=== PATIENT | female | born 1965 | race Hispanic/Latino ===

== ENCOUNTER 2020-01-24 09:32 | Emergency (ER) | payer BC ==
[~2020-01-24] VITALS: Ht 152.4 cm; Wt 72.6 kg
--- NOTE | 2020-01-24 09:39 | Emergency Department Note ---
History of Present Illnes History of Present Illness History of Present Illness This is a 54 year old female presents to the ED for 2 day h/o of weakness and myalgias . Recently started on Gabapentin by PCP. Historian: Patient, Family Member Arrival Mode: Car History limited by: language barrier Scale Operator Required: Yes Onset (how long ago): day(s) (2) Severity: mild Onset quality: gradual Duration (how long): day(s) (2) Context: Denies recent illness, Denies recent surgery, Denies recent immobilization, Denies recent travel, Denies trauma/injury, Denies new medications, Denies hx of DVT/PE, Denies non-compliance w/ medications, Denies other Exacerbating factors: none Associated symptoms: Reports weakness; Denies chest pain Past Medical/Family History Physician Review I have reviewed the patient's past medical and family history. Any updates have been documented here. Past Medical History Recent Fever: No Clinical Suspicion of Infectio: No New/Unexplained Change in Ment: No Past Medical History: Diabetes Other Medical History: Neuroapthy Social History Smoking Cessation: Never Smoker Alcohol Use: None Any Illegal Drug Use: No Review of Systems Review of Systems Constitutional: Reports chills, Reports weakness, Reports other (body aches); Denies fever EENTM: Reports no symptoms Cardiovascular: Reports no symptoms Respiratory: Reports no symptoms Gastrointestinal: Reports nausea Genitourinary: Reports no symptoms Musculoskeletal: Reports no symptoms Integumentary: Reports no symptoms Neurological: Reports no symptoms Psychological: Reports no symptoms Endocrine: Reports no symptoms Hematological/Lymphatic: Reports no symptoms Physical Exam Related Data Allergies: Coded Allergies: No Known Allergies (Unverified , 01/24/20) Vital signs reviewed: Yes Physical Exam CONSTITUTIONAL Constitutional: Present morbidly obese HENT HENT: Present normocephalic, Present atraumatic, Present oropharynx clear/moist, Present nose normal HENT L/R: Present left ext ear normal, Present right ext ear normal EYES Eyes: Reports PERRL, Reports conjunctivae normal NECK Neck: Present ROM normal PULMONARY Pulmonary: Present effort normal, Present breath sounds normal CARDIOVASCULAR Cardiovascular: Present regular rhythm, Present heart sounds normal, Present capillary refill normal, Present normal rate GASTROINTESTINAL Abdominal: Present soft, Present nontender, Present bowel sounds normal GENITOURINARY Genitourinary: Present exam deferred SKIN Skin: Present warm, Present dry MUSCULOSKELETAL Musculoskeletal: Present ROM normal NEUROLOGICAL Neurological: Present alert, Present oriented x 3, Present no gross motor or sensory deficits PSYCHOLOGICAL Psychological: Present mood/affect normal, Present judgement normal Results Laboratory Lab results reviewed: Yes Laboratory comments Laboratory Tests Test 01/24/20 10:04 01/24/20 09:47 Urine Color Yellow (YELLOW) Urine Clarity Clear (CLEAR) Urine pH 7 (5 - 7) Urine Specific [place] 1.015 (1.010-1.025) Urine Protein Negative (NEGATIVE) Urine Glucose (UA) Negative (NEGATIVE) Urine Ketones Negative (NEGATIVE) Urine Blood Small (NEGATIVE) Urine Nitrite Negative (NEGATIVE) Urine Bilirubin Negative (NEGATIVE) Urine Urobilinogen 0.2 mg/dL (0.2 - 1) Urine Leukocyte Esterase Negative (NEGATIVE) Urine RBC 6-10 /HPF (0-5) Urine WBC 0-5 /HPF (0-5) Urine Epithelial Cells Few /LPF (NONE) Urine Bacteria Rare /HPF (NONE) White Blood Count 16.62 x10e3/uL (4.8-10.8) Red Blood Count 4.93 x10e6/uL (3.6-5.1) Hemoglobin 14.7 g/dL (12.0-16.0) Hematocrit 44.0 % (34.2-44.1) Mean Corpuscular Volume 89.2 fL (81-99) Mean Corpuscular Hemoglobin 29.8 pg (28-32) Mean Corpuscular Hemoglobin Concent 33.4 g/dL (31-35) Red Cell Distribution Width 12.9 % (11.7-14.4) Platelet Count 393 x10e3/uL (140-360) Neutrophils (%) (Auto) 44.5 % (38.7-80.0) Lymphocytes (%) (Auto) 49.3 % (18.0-39.1) Monocytes (%) (Auto) 4.5 % (4.4-11.3) Eosinophils (%) (Auto) 1.1 % (0.0-6.0) Basophils (%) (Auto) 0.2 % (0.0-1.0) Neutrophils # (Auto) 7.4 (2.1-6.9) Lymphocytes # (Auto) 8.2 (1.0-3.2) Monocytes # (Auto) 0.8 (0.2-0.8) Eosinophils # (Auto) 0.2 (0.0-0.4) Basophils # (Auto) 0.0 (0.0-0.1) Absolute Immature Granulocyte (auto 0.07 x10e3/uL (0-0.1) Differential Total Cells Counted 100 Neutrophils % (Manual) 43 % (40-74) Band Neutrophils % 1 % Lymphocytes % (Manual) 46 % (19-48) Monocytes % (Manual) 4 % (3.4-9.0) Eosinophils % (Manual) 1 % (0-7) Reactive Lymphocytes 5 Platelet Estimate Adequate Platelet Morphology Comment Few large Red Cell Morphology Comment Normal Sodium Level 141 mmol/L (136-145) Potassium Level 3.5 mmol/L (3.5-5.1) Chloride Level 103 mmol/L (98-107) Carbon Dioxide Level 27 mmol/L (22-29) Anion Gap 14.5 mmol/L (8-16) Blood Urea Nitrogen 8 mg/dL (7-26) Creatinine 0.74 mg/dL (0.57-1.11) Estimat Glomerular Filtration Rate > 60 ML/MIN (60-) BUN/Creatinine Ratio 11 (6-25) Glucose Level 137 mg/dL (74-118) Calcium Level 9.7 mg/dL (8.4-10.2) Total Bilirubin 0.6 mg/dL (0.2-1.2) Aspartate Amino Transf (AST/SGOT) 16 IU/L (5-34) Alanine Aminotransferase (ALT/SGPT) 31 IU/L (0-55) Alkaline Phosphatase 84 IU/L (40-150) Creatine Kinase 47 IU/L (29-168) Creatine Kinase MB 0.90 ng/mL (0-5.0) Troponin I 0.026 ng/mL (0-0.300) B-Type Natriuretic Peptide 16.7 pg/mL (0-100) Total Protein 8.6 g/dL (6.5-8.1) Albumin 5.2 g/dL (3.5-5.0) Globulin 3.4 g/dL (2.3-3.5) Albumin/Globulin Ratio 1.5 (0.8-2.0) Imaging Imaging results reviewed: Yes Impressions [facility] [address], [place] [address] Patient Name: PREM MARROQUIN MR #: [id number] : 1965 Age/Sex: 54/F Req #: [id number] Adm Physician: Ordered by: YUNIEL CRANDALL DO Report #: [id number] Location: ER Room/Bed: Procedure: [id number] DX/CHEST SINGLE (PORTABLE) Exam Date: 01/24/20 Exam Time: 1015 REPORT STATUS: Signed TECHNIQUE: Frontal view of the chest. INDICATION: ^Y ^ERMD ORDER ^[id number] ^1015 ^Y COMPARISON: None DISCUSSION: Limited evaluation due to portable technique. Lines and hardware: Overlying EKG leads are noted. Heart and mediastinum: Cardiomediastinal silhouette and pulmonary vascularity are within normal limits. Trachea projects midline. Lungs and pleura: No focal airspace consolidation. No pleural effusion. No pneumothorax. Soft tissues and bones: No acute abnormality. IMPRESSION: Negative for acute intrathoracic process. Signed by: Rogerio An MD on 01/24/2020 10:32 AM Dictated By: ROGERIO AN MD 1032 Transcribed By: WIN on 01/24/20 1032 COPY TO: YUNIEL CRANDALL DO~ [place] [address] Patient Name: PREM MARROQUIN MR #: [id number] : 1965 Age/Sex: 54/F Req #: [id number] Adm Physician: Ordered by: YUNIEL CRANDALL DO Report #: [id number] Location: ER Room/Bed: Procedure: [id number] CT/CT BRAIN WO Exam Date: 01/24/20 Exam Time: 1000 REPORT STATUS: Signed Exam: Head CT without contrast History: Weakness Comparison studies: None Technique: Axial images were obtained from the skull base to the vertex. Coronal and sagittal images reconstructed from the axial data. Dose modulation, iterative reconstruction, and/or weight based adjustment of the mA/kV was utilized to reduce the radiation dose to as low as reasonably achievable. Radiation dose: Total DLP: 832.18 mGy*cm. Estimated effective dose: DLP x 0.015 Intravenous contrast: None I was made aware of this exam for dictation at 12:50 PM on 01/24/2020. Findings: Scalp: Incidental linear scarring present in the left frontal scalp. Bones: No fractures, blastic or lytic lesions. Brain sulci: Appropriate for age. Ventricles: Normal in size and configuration. No hydrocephalus. Extra-axial spaces: No masses, no fluid collection. Parenchyma: No abnormal densities. No masses, acute hemorrhage, acute or chronic vascular insults. Sellar/suprasellar region: No abnormalities. Craniocervical junction: Patent foramen magnum. No Chiari one malformation. IMPRESSION: No acute intracranial abnormalities. Signed by: Dr. Hector Carbone M.D. on 01/24/2020 12:54 PM Dictated By: HECTOR CARBONE MD 1252 Transcribed By: WIN on 01/24/20 1254 COPY TO: YUNIEL CRANDALL DO~ Procedures 12 Lead ECG Interpretation ECG Interpretation : ECG: ECG 1 Scale Operator: Interpreted by ED physician Date: Jan 24, 2020 Time: 09:53 Prior ECG tracings: reviewed Rhythm: sinus rhythm Rate: normal BPM: 82 QRS axis: normal ST segments normal: Yes T waves flattening: I, II, V1-V6 Clinical Impression: non-specific ECG Assessment & Plan Medical Decision Making MDM Diff Dx : COVID-19 infection, CVA, ACS , sepsis, pneumonia Assessment & Plan Final Impression: (1) URI (upper respiratory infection) Depart Disposition: HOME, SELF-CARE YUNIEL CRANDALL DO Jan 24, 2020 09:39
[2020-01-24] MEDS ORDERED: ASPIRIN 81 MG CHEW TAB PO ONE (09:45)
[2020-01-24 10:00] LABS: BASOPHILS % 0.2 % (0.0-1.0); EOSINOPHILS # (AUTO) 0.2 (0.0-0.4); EOSINOPHILS % 1.1 % (0.0-6.0); HEMOGLOBIN 14.7 g/dL (12.0-16.0); LYMPHOCYTES # (AUTO) 8.2 (1.0-3.2); LYMPHOCYTES % 49.3 % (18.0-39.1); MEAN CORPUSCULAR HEMOGLOBIN 29.8 pg (28-32); MEAN CORPUSCULAR HGB CONC 33.4 g/dL (31-35); MEAN CORPUSCULAR VOLUME 89.2 fL (81-99); MONOCYTES # (AUTO) 0.8 (0.2-0.8); MONOCYTES % 4.5 % (4.4-11.3); NEUTROPHILS # (AUTO) 7.4 (2.1-6.9); NEUTROPHILS % 44.5 % (38.7-80.0); PLATELET COUNT 393 x10e3/uL (140-360); RED BLOOD COUNT 4.93 x10e6/uL (3.6-5.1); RED CELL DISTRIBUTION WIDTH 12.9 % (11.7-14.4)
[2020-01-24 10:30] LABS: ALANINE AMINOTRANSFERASE 31 IU/L (0-55); ALBUMIN 5.2 g/dL (3.5-5.0); ALBUMIN/GLOBULIN RATIO 1.5 (0.8-2.0); ALKALINE PHOSPHATASE 84 IU/L (40-150); ANION GAP 14.5 mmol/L (8-16); BLOOD UREA NITROGEN 8 mg/dL (7-26); BUN/CREATININE RATIO 11 (6-25); CALCIUM 9.7 mg/dL (8.4-10.2); CARBON DIOXIDE 27 mmol/L (22-29); CHLORIDE 103 mmol/L (98-107); CREATINE KINASE 47 IU/L (29-168); CREATININE, SERUM 0.74 mg/dL (0.57-1.11); EST GLOMERULAR FILTRATION RATE > 60 ML/MIN (60-); GLUCOSE 137 mg/dL (74-118); POTASSIUM 3.5 mmol/L (3.5-5.1); SODIUM 141 mmol/L (136-145)
--- NOTE | 2020-01-24 10:35 | Diagnostic Imaging Report ---
TECHNIQUE: Frontal view of the chest. INDICATION: ^Y ^ERMD ORDER ^[id number] ^1015 ^Y COMPARISON: None DISCUSSION: Limited evaluation due to portable technique. Lines and hardware: Overlying EKG leads are noted. Heart and mediastinum: Cardiomediastinal silhouette and pulmonary vascularity are within normal limits. Trachea projects midline. Lungs and pleura: No focal airspace consolidation. No pleural effusion. No pneumothorax. Soft tissues and bones: No acute abnormality. IMPRESSION: Negative for acute intrathoracic process. Signed by: Leonard An MD on 01/24/2020 10:32 AM
[2020-01-24 11:11] LABS: CLARITY,URINE CLEAR (CLEAR); COLOR,URINE YELLOW (YELLOW); LEUKOCYTE ESTERASE ,URINE NEGATIVE (NEGATIVE); NITRITE,URINE NEGATIVE (NEGATIVE)
[2020-01-24 11:12] LABS: BILIRUBIN,URINE NEGATIVE (NEGATIVE); KETONES,URINE NEGATIVE (NEGATIVE); PROTEIN,URINE DIPSTICK NEGATIVE (NEGATIVE); URINE UROBILINOGEN 0.2 mg/dL (0.2 - 1)
[2020-01-24 11:33] LABS: WBC,URINE (MAN) 0-5 /HPF (0-5)
[2020-01-24 11:34] LABS: BACTERIA,URINE RARE /HPF; EPITHELIAL CELLS,URINE FEW /LPF
[2020-01-24 11:43] LABS: BAND NEUTROPHILS % (MANUAL) 1 %; EOSINOPHILS % (MANUAL) 1 % (0-7); LYMPHOCYTES % (MANUAL) 46 % (19-48); MONOCYTES % (MANUAL) 4 % (3.4-9.0); NEUTROPHILS % (MANUAL) 43 % (40-74); PLATELET ESTIMATE ADEQUATE; PLATELET MORPHOLOGY COMMENT FEW LARGE; RBC MORPHOLOGY COMMENT NORMAL
--- NOTE | 2020-01-24 12:57 | Diagnostic Imaging Report ---
Exam: Head CT without contrast History: Weakness Comparison studies: None Technique: Axial images were obtained from the skull base to the vertex. Coronal and sagittal images reconstructed from the axial data. Dose modulation, iterative reconstruction, and/or weight based adjustment of the mA/kV was utilized to reduce the radiation dose to as low as reasonably achievable. Radiation dose: Total DLP: 832.18 mGy*cm. Estimated effective dose: DLP x 0.015 Intravenous contrast: None I was made aware of this exam for dictation at 12:50 PM on 01/24/2020. Findings: Scalp: Incidental linear scarring present in the left frontal scalp. Bones: No fractures, blastic or lytic lesions. Brain sulci: Appropriate for age. Ventricles: Normal in size and configuration. No hydrocephalus. Extra-axial spaces: No masses, no fluid collection. Parenchyma: No abnormal densities. No masses, acute hemorrhage, acute or chronic vascular insults. Sellar/suprasellar region: No abnormalities. Craniocervical junction: Patent foramen magnum. No Chiari one malformation. IMPRESSION: No acute intracranial abnormalities. Signed by: Dr. Junior Carbone M.D. on 01/24/2020 12:54 PM
[2020-01-24 13:32] VITALS: BP 145/65
== END 2020-01-24 13:44 | disposition home or self-care (01) ==
LOC: ER 09:36
DX: R53.1 Weakness (principal); J06.9 Acute upper respiratory infection, unspecified; E11.40 Type 2 diabetes mellitus with diabetic neuropathy, unspecified; M79.10 Myalgia, unspecified site
CPT/HCPCS: 36415; 70450; 71045; 80053; 81001; 82550; 82553; 83880; 84484; 85025; 93005; 99284

== ENCOUNTER 2020-07-21 05:58 | Emergency (ER) | payer BC ==
[~2020-07-21] VITALS: Ht 152.4 cm; Wt 72.6 kg
[2020-07-21] MEDS ORDERED: SODIUM CHLORIDE 0.9% 1000ML 1,000 ML IV STA (06:05)
[2020-07-21] MEDS ORDERED: ONDANSETRON HCL INJ 2MG/ML 2ML 2 MG/ML VIAL IV NR (06:30)
[2020-07-21] MEDS ORDERED: DIAZEPAM 2 MG TAB PO NR (06:30)
[2020-07-21] MEDS ORDERED: MECLIZINE HCL 12.5 MG TAB PO ONE (06:30)
[2020-07-21] MEDS ORDERED: MECLIZINE HCL12.5 MG PO (06:39)
[2020-07-21 07:18] LABS: BASOPHILS % 0.2 % (0.0-1.0); EOSINOPHILS # (AUTO) 0.3 (0.0-0.4); EOSINOPHILS % 2.5 % (0.0-6.0); HEMATOCRIT 43.5 % (34.2-44.1); HEMOGLOBIN 14.5 g/dL (12.0-16.0); LYMPHOCYTES # (AUTO) 3.9 (1.0-3.2); LYMPHOCYTES % 35.6 % (18.0-39.1); MEAN CORPUSCULAR HEMOGLOBIN 29.8 pg (28-32); MEAN CORPUSCULAR HGB CONC 33.3 g/dL (31-35); MEAN CORPUSCULAR VOLUME 89.3 fL (81-99); MONOCYTES # (AUTO) 0.6 (0.2-0.8); MONOCYTES % 5.8 % (4.4-11.3); NEUTROPHILS # (AUTO) 6.1 (2.1-6.9); NEUTROPHILS % 55.5 % (38.7-80.0); PLATELET COUNT 358 x10e3/uL (140-360); RED BLOOD COUNT 4.87 x10e6/uL (3.6-5.1); RED CELL DISTRIBUTION WIDTH 12.9 % (11.7-14.4)
[2020-07-21 07:39] LABS: ALANINE AMINOTRANSFERASE 18 IU/L (0-55); ALBUMIN 4.1 g/dL (3.5-5.0); ALKALINE PHOSPHATASE 89 IU/L (40-150); ANION GAP 15.6 mmol/L (8-16); BLOOD UREA NITROGEN 17 mg/dL (7-26); BUN/CREATININE RATIO 27 (6-25); CALCIUM 8.9 mg/dL (8.4-10.2); CARBON DIOXIDE 25 mmol/L (22-29); CHLORIDE 105 mmol/L (98-107); CREATINE KINASE 77 IU/L (29-168); CREATININE, SERUM 0.64 mg/dL (0.57-1.11); EST GLOMERULAR FILTRATION RATE > 60 ML/MIN (60-); GLUCOSE 169 mg/dL (74-118); POTASSIUM 3.6 mmol/L (3.5-5.1); SODIUM 142 mmol/L (136-145)
[2020-07-21 08:43] VITALS: BP 140/87
== END 2020-07-21 08:53 | disposition home or self-care (01) ==
LOC: ER 06:21
DX: R42 Dizziness and giddiness (principal); E11.65 Type 2 diabetes mellitus with hyperglycemia; E11.40 Type 2 diabetes mellitus with diabetic neuropathy, unspecified; I10 Essential (primary) hypertension; E78.5 Hyperlipidemia, unspecified
CPT/HCPCS: 36415; 71045; 80053; 82550; 82553; 83690; 84484; 85025; 93005; 99284; J2405; J7030; J8597